=== PATIENT | male | born 1995 | race Caucasian/White ===

== ENCOUNTER 2019-03-19 09:45 | Emergency (ER) | payer BC ==
[2019-03-19 10:03] VITALS: BP 133/77
--- NOTE | 2019-03-19 10:03 | UC ---
Throat Pain/Nasal Freeman HPI - HPI Summary HPI Summary: Has had a sore throat for about 3 days. States a that it started as a migraine on Sunday. Hurts to swallow. Has been able to eat and drink. Has not had any known fevers. - History of Current Complaint Stated Complaint: SORE THROAT Time Seen by Provider: 03/19/19 09:54 Hx Obtained From: Patient Onset/Duration: Sudden Onset, Lasting Days Severity: Moderate Associated Signs & Symptoms: Positive: Dysphagia - Allergies/Home Medications Allergies/Adverse Reactions: Allergies Allergy/AdvReac Type Severity Reaction Status Date / Time No Known Allergies Allergy Verified 03/19/19 10:04 Home Medications: Home Medications Acetaminophen TAB* [Tylenol TAB*] 325 mg PO PRN 03/19/19 [History] PMH/Surg Hx/FS Hx/Imm Hx Previously Healthy: Yes - Family History Known Family History: Negative: Hypertension Review of Systems All Other Systems Reviewed And Are Negative: Yes ENT: Positive: Sore Throat Neurological: Positive: Headache Is Patient Immunocompromised?: No Physical Exam Triage Information Reviewed: Yes Vital Signs Reviewed: Yes ENT: Positive: Pharyngeal erythema, TM bulging - bilaterally Dental Exam: Normal Neck exam: Normal Respiratory Exam: Normal Respiratory: Positive: Chest non-tender, No respiratory distress, No accessory muscle use, Wheezing, Inspiration Cardiovascular Exam: Normal Cardiovascular: Positive: RRR, No Murmur, Pulses Normal Abdominal Exam: Normal Musculoskeletal: Positive: Strength Intact, ROM Intact, No Edema Neurological Exam: Normal Psychological Exam: Normal Skin Exam: Normal Throat Pain/Nasal Course/Dx - Course Course Of Treatment: Hx obtained, exam performed, meds reviewed, rapid strep obtained and was negative, placed on prednisone for serous otitis and wheezing - Differential Dx/Diagnosis Provider Diagnosis: Acute serous otitis media, Pharyngitis Discharge ED - Sign-Out/Discharge Documenting (check all that apply): Patient Departure All imaging exams completed and their final reports reviewed: No Studies - Discharge Plan Condition: Stable Disposition: HOME Patient Education Materials: Serous Otitis Media (ED) Forms: *Work Release Referrals: No Primary Care Phys,NOPCP [Primary Care Provider] - Additional Instructions: 1. Rest, fluids and take the presdnisone as prescribed. 2. Ibuprofen and claritin for symtpom relief 3. FOllow up if not improving in the next 7 -10 days - Billing Disposition and Condition Condition: STABLE Disposition: Home
== END 2019-03-19 10:49 | disposition home or self-care (01) ==
LOC: UCCORT 09:45
DX: J02.9 Acute pharyngitis, unspecified (principal); H65.93 Unspecified nonsuppurative otitis media, bilateral
CPT/HCPCS: 87651; 99202; G0463